=== PATIENT | female | born 1985 | race Caucasian/White ===

== ENCOUNTER 2024-01-25 14:04 | Outpatient (CLI) | payer BC, SELFPAY ==
--- NOTE | ~2024-01-25 | MM_ITS ---
EXAMINATION: MM screening christo BI w herman HISTORY: Screening TECHNIQUE: Craniocaudal and mediolateral oblique 3-D tomosynthesis images were obtained and synthetic 2-D images were generated. CAD analysis was submitted and interpreted. COMPARISON: 08/16/2007 BREAST PARENCHYMAL COMPOSITION: Not dense: There are scattered areas of fibroglandular density. FINDINGS: There is no evidence of suspicious mass, calcification, or architectural distortion to sugg est malignancy in either breast. There has been no suspicious interval change. IMPRESSION: 1. No mammographic evidence of malignancy. 2. Recommend routine screening mammography in one year. BI-RADS Category 1: Negative Reviewed, dictated and finalized at location B.
== END 2024-01-25 14:05 ==
PROVIDERS: PCP Nurse Practitioner Adult Health; Visit Provider Nurse Practitioner
DX: Z12.31 Encounter for screening mammogram for malignant neoplasm of breast (principal)
CPT/HCPCS: 77063; 77067

== ENCOUNTER 2024-09-07 17:02 | Emergency (ER) | payer BC, SELFPAY ==
[2024-09-07 17:07] VITALS: BP 131/87; PULSE 83; RESP 16; TEMP 36.4; O2SAT 100
--- NOTE | 2024-09-07 17:15 | ED_ITS ---
HPI - Wound/Laceration General Chief Complaint: Wound/Laceration Stated Complaint: Cut Finger Time Seen by Provider: 09/07/24 17:10 Source: patient Mode of arrival: ambulatory Limitations: no limitations History of Present Illness HPI narrative: Margaret is a 39-year-old female patient presenting to the clinic today with complaints of a cut to the left lateral pinky. She reports she slipped and fell and her her pinky ran across the wall and she cut the 5th finger last night. Tetanus is unknown. Bleeding is controlled. Related Data Allergies Allergy/AdvReac Type Severity Reaction Status Date / Time acetaminophen [From Vicodin] AdvReac Intermediate Nausea and Verified 09/07/24 17:06 Vomiting hydrocodone [From Vicodin] AdvReac Intermediate Nausea and Verified 09/07/24 17:06 Vomiting Review of Systems Review of Systems: Pertinent positives per HPI. Patient denies any fever, chills, rash, headache, visual changes, dizziness, cough, runny nose, sore throat, shortness of breath, chest pain, palpitations, nausea, vomiting, diarrhea, constipation, abdominal pain, or any urinary issues. [facility] Past Medical History Medical History History of lateral epicondylitis of left elbow Lateral epicondylitis of elbow Left elbow pain Obesity Right elbow pain Family History Family History Grandparent Diabetes mellitus Social History Social History Social History: caffeine use Smoking status: Never smoker Alcohol intake: current Alcohol use details: occasional Substance use: never Lack of Transportation: No Lack of Food: Never True Current Housing: I Have Housing Concerned About Future Housing: No Difficulty Paying Gas/Electric Bills: No Difficulty Paying for Meds: No Currently Unemployed: No Education: Master's Degree or Higher Difficulty w/ Childcare or Family Care: No Living arrangements: with family Occupation/Education: occupation 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 There is no relevant family history pertinent to the patient complaint. Exam Narrative: General: Well-developed, well nourished, in no apparent distress Head: Normocephalic, atraumatic. Cardio: Regular rate and rhythm, s1 and s2 normal, no murmur appreciated. Resp: Clear to auscultation bilaterally, no rhonchi, rales, wheezing or rubs. Integumentary: [place], warm, and dry, 1.5 x 1 cm skin avulsion to the lateral aspect of the mid/distal 5th finger Course Course Emergency Course: Portions of this record may have been created with voice recognition software. Level of Care: Express Care Visit Vital Signs Vital signs: Vital signs reviewed MDM - Wound/Laceration MDM Narrative Medical decision making narrative: At the time of visit patient is resting comfortably on the exam table. Patient appears to be nontoxic. Medications: Tdap was given in the clinic today. Plan: I suspect patient has a skin avulsion to the right 5th finger. Supportive measures were discussed with the patient and they voiced understanding discharge instructions and agrees to treatment plan. Return precautions reviewed Differential Diagnosis Differential diagnosis: Likely laceration, abscess, abrasion and avulsion of skin Discharge Plan Discharge Clinical Impression: Avulsion of skin of finger Patient Disposition: Home, Self-Care Condition: Stable Instructions: Antibiotic Form, Skin Avulsion (ED) Additional Instructions: Tdap was given in the clinic today. Leave bandage on for 24 hours then may remove and apply band aide covering as needed. Keep wound clean and dry May apply triple antibiotic ointment to the wound twice daily times 48 hours. Watch for signs and symptoms of infection- redness, streaking, swelling, purulent discharge, or increase in pain. Follow up with your PCP as needed Prescriptions: No Action Zepbound 7.5 mg/0.5 mL pen injector 7.5 mg subcut WEEKLY Qty: 2 0RF Follow-up/Referrals: Vandana Zaldivar APRN [Primary Care Provider] - Time of Disposition: 17:14 Quality NIHSS Nursing Documentation ED NIHSS nursing documentation: reviewed/agree
[2024-09-07] MEDS: TETANUS,DIPHTHERIA,AC PERTUSSIS ADULT (0.5 ML) BOOSTRIX IM (17:18)
== END 2024-09-07 17:21 | disposition home or self-care (01) ==
PROVIDERS: Emergency Provider Nurse Practitioner Family; PCP Nurse Practitioner Adult Health
DX: S61.206A Unspecified open wound of right little finger without damage to nail, initial encounter (principal); W01.198A Fall on same level from slipping, tripping and stumbling with subsequent striking against other object, initial encounter; Z23 Encounter for immunization; E66.9 Obesity, unspecified; Z68.31 Body mass index [BMI] 31.0-31.9, adult
CPT/HCPCS: 90471; 90715; 99212; G0463

== ENCOUNTER 2024-12-31 07:09 | Outpatient (CLI) | payer BC, SELFPAY ==
--- OUTSIDE RECORDS SUMMARY | 2024-12-31 07:13 | XMS_ITS | Clinical Summary ---
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 Gender Identity Not on file Sexual Orientation Not on file Plan of Treatment Health Maintenance Due Date Last Done Comments Hepatitis C Virus (HCV) Screening 1983 TdaP Immunization 1983 Hepatitis B Immunization (1 of 3 - 19+ 3-dose series) 2002 Pap Smear 2004 Cervical Cancer Screening (CCS) 2013 HPV/Cotest 2013 Discussion re Starting/Frequency of Mammograms 2023 Influenza Immunization (#1) 06/09/202406/09, 07/25/2019, 11/21/2018, Additional history exists SARS-COV-2 Immunization (2023- season) 2024 Respiratory Syncytial Virus (RSV) Immunization (Adult) (1 - 1-dose 75+ series) 2058 Meningococcal Immunization (ACWY) Aged Out No longer eligible based on patient's age to complete this topic Pneumococcal Immunization Combined Aged Out No longer eligible based on patient's age to complete this topic Rotavirus Immunization Aged Out No lo nger eligible based on patient's age to complete this topic
--- OUTSIDE RECORDS SUMMARY | 2024-12-31 07:13 | XMS_ITS | Clinical Summary ---
Author Organization [facility] Address [address] [place] [address] Phone Care Team Providers Care Store Clerk Name Role Phone Nnamdi, Porsha Vasques MD Primary Care Provider Allergies Active Allergy Reactions Criticality Noted Date Comments Hydrocodone-Acetaminophen Unknown 07/20/2009 Medications VITS W-CA,FE,FA,<1MG, ( VITAMIN PO)Indications:L ump or mass in breast Take by mouth. Active FOLIC ACID ORAL Take 400 mg by mouth daily. Active docusate sodium (COLACE) 100 mg Oral capsule Take 2 Caps by mouth daily. Active Active Problems Patient Care Coordination No te Formatting of this note migh t be different from the original. Primary Care: Porsha Yoder MD Referring Provider: No referring provider defined for this encounter. Other: Problem Noted Date Diagnosed Date Lump or mass in breast 07/20/2009 Comments Yes Family History Medical History Relation Name Comments Diabetes Father Other Maternal Grandfather blood c lots Spont Ab Maternal Grandmother Healthy Mother Diabetes Paternal Grandfather Breast Cancer Paternal Grandmother age 82 Healthy Sister Relation Name Status Comments Father Maternal Grandfather Maternal Grandmother Mother Paternal Grandfather Paternal Grandmother Sister Social History Tobacco Use Types Packs/Day Years Used Date Smoking Tobacco: Never Alcohol Use Standard Drinks/Week Comments Yes 0 (1 standard drink = 0.6 oz pur e alcohol) rarely Comments Yes Sex and Gender Information Value Date Recorded Sex Assigned at Not on file 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 Gender Identity Not on file Sexual Orientation Not on file Occupation Industry Job Start Date Job End Date Not on file Not on file Not on file Not on file Last Filed Vital Signs Vital Sign Reading Time Taken Comments Blood Pressure 101/69 01/26/2010 10:21 AM CDT Pulse - - Temperature - - Respiratory Rate - - Oxygen Saturation - - Inhaled Oxygen Concentration - - Weight 84.8 kg (187 lb) 01/26/2010 10:21 AM CDT Height 172.7 cm (5' 8 ) 01/26/2010 10:21 AM CDT Body Mass Index 28.43 01/26/2010 10:21 AM CDT Plan of Treatment Health Maintenance Due Date Last Done Comments DTAP/TDAP/TD VACCINES (1 - Tdap) 2002 HEPATITIS B VACCINES (1 of 3 - 19+ 3-dose series) 2002 PAP SMEAR 2004 CERVICAL CANCER SCREENING 2013 HPV/Cotest 2013 PAP SMEAR 2013 BREAST CANCER SCREENING 2023 08/16/20 07, 08/16/2007 INFLUENZA VACCINE (#1) 2024 RSV VACCINE (60+ or ) (1 - 1-dose 75+ series) 2058 HPV VACCINES Aged Out No longer eligi ble based on patient's age to complete this topic PNEUMOCOCCAL VACCINE 0-49 YEARS Aged Out No longer eligible b ased on patient's age to complete this topic Procedures Procedure Name Priority Date/Time Associated Diagnosis Comments MAMMO DIAGNOSTIC BILATERAL W OR WO CAD Routine 08/16/2007 from Last 3 Months or Most Recently Relevant to Health Maintenance Results * MAMMO DIGITAL DIAG BILAT (08/16/2007) Anatomical Region Laterality Modality Breast Bilateral Other us Leslie Goodrich MD MAMMO ORDERABLES Final Result from Last 3 Months or Most Recently Relevant to Health Maintenance Insurance BCBS BLUE ACCESS/TRUE BLUE PPO Care Teams Store Clerk Relationship Specialty Start Date End Date Porsha Coto MD PCP - General 07/20/09
[2024-12-31 19:56] LABS: Alanine Aminotransferase 17 U/L (6-35); Albumin Level 4.5 g/dL (3.5-5.1); Alkaline Phosphatase 57 U/L (38-126); Anion Gap 9 mmol/L (4-12); Aspartate Amino Transferase 40 U/L (14-36); Bilirubin,Total 0.8 mg/dL (0.2-1.3); Blood Urea Nitrogen 14 mg/dL (7-17); Calcium 9.5 mg/dL (8.4-10.2); Carbon Dioxide 24 mmol/L (22-30); Chloride 106 mmol/L (98-107); Cholesterol 114 mg/dL (0-200); Estimated Glomerular Filt Rate > 60; Glucose 88 mg/dL (65-110); HDL Direct 37 mg/dL; Potassium 4.2 mmol/L (3.4-5.0); Sodium 139 mmol/L (137-145); Triglycerides 118 mg/dL (<150)
[2024-12-31 20:20] LABS: LDL Cholesterol Direct < 30 mg/dL
[2024-12-31 21:06] LABS: Hemoglobin A1C 4.8 % (<5.7)
== END 2024-12-31 07:10 | disposition home or self-care (01) ==
PROVIDERS: PCP Nurse Practitioner Adult Health; Visit Provider Nurse Practitioner Adult Health
DX: Z13.9 Encounter for screening, unspecified (principal); R73.9 Hyperglycemia, unspecified
CPT/HCPCS: 36415; 80053; 80061; 83036

== ENCOUNTER 2025-01-16 14:07 | Emergency (ER) | payer BC, SELFPAY ==
[2025-01-16] VITALS (8 sets, daily range): BP systolic 86–103; BP diastolic 59–76; PULSE 71–93; RESP 12–19; TEMP 36.4–36.5; O2SAT 96–100
--- NOTE | ~2025-01-16 | CT_ITS ---
EXAMINATION: CT abdomen pelvis w con DATE: 01/16/2025 16:27 INDICATION: Right upper quadrant abdominal pain TECHNIQUE: Computed tomography (CT) of the abdomen and pelvis was performed with 100 mL Omnipaque-350 intravenous contrast. Automated exposure control and iterative reconstruction technique were employe d. The dose-length product was 428.42 mGy-cm. COMPARISON: None FINDINGS: Lung bases are clear. Heart size is normal. No pericardial or pleural effusion. Mild intrahepatic chris iary ductal dilation. Liver is otherwise unremarkable. The common bile duct remained normal in calibe r measuring up to 4 mm in diameter. No evident distal obstructing stone or mass identified. Gallbladd er, spleen, pancreas, bilateral adrenal glands and kidneys are normal. Bowels including the appendix are normal. Bladder, anteverted uterus and bilateral adnexa are unremarkable. No free intraperitoneal gas or fluid. No pathologically enlarged abdominal or pelvic lymphadenopathy. Mild lumbar spondylosi s. IMPRESSION: 1. Mild intrahepatic biliary ductal dilation with normal caliber common bile duct and no evident obst ructing stone or mass. Correlate with liver function tests and if clinically indicated could consider MRCP for further evaluation. Reviewed, dictated and finalized at location B. IMPRESSION: 1. Mild intrahepatic biliary ductal dilation with normal caliber common bile du ct and no evident obstructing stone or mass. Correlate with liver function test s and if clinically indicated could consider MRCP for further evaluation.
--- NOTE | ~2025-01-16 | US_ITS ---
Limited ABDOMINAL ULTRASOUND (Doppler ultrasound interrogation techniques used as needed for this exa m.) Ordering provider: Rashid Prather MD History: . RUQ pain . Comparison: None. FINDINGS: PANCREAS: Normal echotexture and size. PORTAL VEIN: Hepatopedal flow demonstrated. LIVER: Normal size and echotexture. Liver measures 16.5 cm. No focal hepatic lesions or perihepatic f luid collections are identified. BILIARY DUCTS: No intra or extrahepatic biliary dilation. Common bile duct measures 2.1 mm in diamete r which is normal for patient's age. GALLBLADDER: Multiple stones. No sludge, gallbladder wall thickening or pericholecystic fluid. Wall t hickness is 1.5 mm. Negative sonographic Mason's sign. IVC: Patent. FREE FLUID: None visualized within the upper abdomen. IMPRESSION: Cholelithiasis. Otherwise, normal limited abdominal ultrasound. Reviewed, dictated and finalized at location A.
--- OUTSIDE RECORDS SUMMARY | 2025-01-16 14:42 | XMS_ITS | Clinical Summary ---
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
--- OUTSIDE RECORDS SUMMARY | 2025-01-16 14:42 | XMS_ITS | Clinical Summary ---
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
--- OUTSIDE RECORDS SUMMARY | 2025-01-16 14:42 | XMS_ITS | Continuity of Care Document ---
Author Organization [facility] Address [address] [place] [address] Phone Care Team Providers Care Director Of Pharmacy Name Role Phone MD POPE GILBERT Unavailable Unavailable Advance Directives Directive Yes / No Effective Date File Name No Information Encounters Encounter Description Practice Location Reason(s) For Visit Diagnoses Date Provider Providers Copied on Encounter [facility], [address] [facility] [address], [place], [place], [id number], [place] tel:[phone] [facility] No Information MD ANKIT POPE. [address] [place] [address], [id number], [place]. tel:[phone] Referring Provider: LUANN Alonzo, [address], [place], [address]. tel:[phone] Family History Family Member Type Diagnosis Age At Onset No Information Payers Payer name Insurance type Covered libertarian ID Authoriza richard(s) [facility] PPO [id number] BL [id number] Social History Type Description Quantity Date Captured Comments Sex Female Smoking Status No Information Chief Complaint And Reason For Visit No Information History Of Present Illness Encounter Date Complaint History Of Prese nt Illness No Information Instructions Date Instruction Additional Infor mation No Information Assessments Type Assessment Date No Information
[2025-01-16 15:01] LABS: BEDSIDEPREGUCG Negative (Negative)
[2025-01-16 15:09] LABS: Basophils Absolute Auto 0.1 K/mm3 (0.0-0.1); Basophils Percent Auto 0.5 % (0.2-1.2); Eosinophils Absolute Auto 0.1 K/mm3 (0-0.3); Eosinophils Percent Auto 0.8 % (0-4.4); Hemoglobin 13.5 g/dL (12.0-15.0); Immature Granulocyte Percent A 0.8 % (0-0.5); Lymphocytes Absolute Auto 2.66 K/mm3 (0.9-3.2); Lymphocytes Percent Auto 20.4 % (18.3-44.2); Mean Corpuscular HGB Conc 32.9 g/dl (32-36); Mean Corpuscular Hemoglobin 26.9 pg (26-34); Mean Corpuscular Volume 81.8 fl (80-100); Mean Platelet Volume 9.6 fl (7.4-10.4); Monocytes Absolute Auto 0.7 K/mm3 (0.1-0.6); Monocytes Percent Auto 5.2 % (2.6-8.5); Neutrophils Absolute Auto 9.4 K/mm3 (1.3-6.7); Neutrophils Percent Auto 72.3 % (45.5-73.1); Platelet Count Result 293 k/mm3 (150-375); Red Blood Count 5.01 M/mm3 (4.2-5.4); Red Cell Distribution Width 14.3 % (11.5-14.5)
[2025-01-16 15:19] LABS: Alanine Aminotransferase 27 U/L (6-35); Albumin Level 4.7 g/dL (3.5-5.1); Alkaline Phosphatase 65 U/L (38-126); Anion Gap 11 mmol/L (4-12); Aspartate Amino Transferase 31 U/L (14-36); Bilirubin,Total 0.7 mg/dL (0.2-1.3); Blood Urea Nitrogen 15 mg/dL (7-17); Calcium 9.3 mg/dL (8.4-10.2); Carbon Dioxide 26 mmol/L (22-30); Chloride 103 mmol/L (98-107); Estimated CRCL calculation 79 ml/min; Estimated Glomerular Filt Rate > 60; Glucose 95 mg/dL (65-110); Lipase 100 U/L (23-300); Potassium 3.7 mmol/L (3.4-5.0); Sodium 140 mmol/L (137-145)
[2025-01-16 15:23] LABS: Add Urine Microscopic? YES; Appearance Urine Cloudy (Clear); Bacteria Urine 3+ /hpf; Bilirubin Urine Negative (Negative); Blood Urine Negative (Negative); Color Urine Dark Yellow (Yellow); Glucose Urine UA Negative (Negative); Ketones Urine Trace mg/dL (Negative); Leukocyte Esterase Ur 1+ LEU/UL (Negative); Need Manual Microscopic Reviewed; Nitrate Urine Negative (Negative); Non Pathogenic Casts 0-2; Protein Urine Negative (Negative); RBC Urine 0-2 /hpf (0-2); Specific Grav Ur 1.026 (1.001-1.035); Squamous Epithelial Cell Urine Moderate /hpf (Few); WBC Urine 0-5 /hpf (0-3)
[2025-01-16] MEDS: ONDANSETRON INJ 4 MG/2 ML VIAL IV PUSH (16:41)
[2025-01-16] MEDS: FAMOTIDINE 20 MG/2 ML VIAL IV PUSH (16:43)
[2025-01-16] MEDS: HYDROmorphone HCL INJ (*CRX) 1 MG/ML SYR 0.5 MG IV PUSH ×2 (16:43→18:08)
[2025-01-16] MEDS: SODIUM CHLORIDE 0.9% IV 500 ML 999 ML IV CONT (16:44)
[2025-01-16] MEDS: SODIUM CHLORIDE 0.9% IV 1,000 ML 999 ML IV CONT ×2 (16:45)
--- OUTSIDE RECORDS SUMMARY | 2025-01-16 17:04 | XMS_ITS | Continuity of Care Document ---
Author Organization [facility] Address [address] [place] [address] Phone Care Team Providers Care Steel Rule Die Maker Apprentice Name Role Phone MD POPE GILBERT Unavailable Unavailable Advance Directives Directive Yes / No Effective Date File Name No Information Encounters Encounter Description Practice Location Reason(s) For Visit Diagnoses Date Provider Providers Copied on Encounter [facility], [address] [facility], [place], [place], [id number], [place] tel:[phone] [facility] No Information MD ANKIT POPE. [address] [place] [address], [id number], [place]. tel:[phone] Referring Provider: LUANN Alonzo, [address], [place], [address]. tel:[phone] Family History Family Member Type Diagnosis Age At Onset No Information Payers Payer name Insurance type Covered democrat ID Authoriza richard(s) [facility] PPO [id number] BL [id number] Social History Type Description Quantity Date Captured Comments Sex Female Smoking Status No Information Chief Complaint And Reason For Visit No Information History Of Present Illness Encounter Date Complaint History Of Prese nt Illness No Information Instructions Date Instruction Additional Infor mation No Information Assessments Type Assessment Date No Information
--- OUTSIDE RECORDS SUMMARY | 2025-01-16 17:04 | XMS_ITS | Clinical Summary ---
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
--- OUTSIDE RECORDS SUMMARY | 2025-01-16 17:04 | XMS_ITS | Clinical Summary ---
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
--- NOTE | 2025-01-16 18:44 | ED.GENADULT ---
HPI - General Adult General Chief complaint: Abdominal Pain Stated complaint: Abd pain, N/V x 3hrs Time Seen by Provider: 01/16/25 15:03 History of Present Illness HPI narrative: This is a pleasant 39-year-old female presenting with right upper quadrant pain. Pain started at 10:00 a.m. this morning. Pain is an achy/sharp pain in the right upper quadrant that radiates to her back. It began after she ate food. She has had this occur multiple times over the last several months but it typically resolves after she vomits. She did have an episode of vomiting earlier today. She denies fevers chills chest pain difficulty breathing urinary symptoms or diarrhea. She has no history of gallbladder disease she is aware of. Related Data Allergies Allergy/AdvReac Type Severity Reaction Status Date / Time acetaminophen (From Vicodin) AdvReac Intermediate Nausea and Verified 01/16/25 14:09 Vomiting hydrocodone (From Vicodin) AdvReac Intermediate Nausea and Verified 01/16/25 14:09 Vomiting PMFSH Past Medical History Medical History Sprain of left elbow Injury of left elbow Lateral epicondylitis of elbow History of lateral epicondylitis of left elbow Right elbow pain Left elbow pain Obesity Family History Family History Grandparent Diabetes mellitus Social History Social History Social History: caffeine use Smoking status: Never smoker Alcohol intake: current Alcohol use details: occasional Substance use: never Lack of Transportation: No Lack of Food: Never True Current Housing: I Have Housing Concerned About Future Housing: No Difficulty Paying Gas/Electric Bills: No Difficulty Paying for Meds: No Currently Unemployed: No Education: Master's Degree or Higher Difficulty w/ Childcare or Family Care: No Living arrangements: with family Occupation/Education: occupation 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 Head: atraumatic. EYES: EOMI, NOSE: Atraumatic NECK: Trachea midline RESPIRATORY: No increased rate of breathing CTAB CARDIOVASCULAR: RRR, ABDOMINAL: Tenderness palpation the right upper quadrant without guarding rebound, no CVA tenderness MUSCULOSKELETAl: No obvious deformities NEURO: Alert. Moving 4/4 extremities SKIN:: Warm, dry. Normal color PSYCHIATRIC: Normal affect Course Vital Signs Vital signs: Vital Signs Temperature 97.5 F L 01/16/25 14:13 Pulse Rate 75 01/16/25 14:13 Respiratory Rate 16 01/16/25 14:13 Blood Pressure 92/59 L 01/16/25 14:13 Pulse Oximetry 100 01/16/25 14:13 Oxygen Delivery Room Air 01/16/25 14:13 Temperature 97.5 F L 01/16/25 14:13 Pulse Rate 91 01/16/25 16:47 Respiratory Rate 18 01/16/25 16:47 Blood Pressure 100/70 01/16/25 16:47 Pulse Oximetry 99 01/16/25 16:47 Oxygen Delivery Room Air 01/16/25 14:13 Medical Decision Making MDM Narrative Medical decision making narrative: -Course: 39-year-old female presenting with right upper quadrant pain. Right upper quadrant ultrasound shoulder cholelithiasis without evidence of cholecystitis or hepatic ductal dilation. Liver enzymes within normal limits. White blood cell count mildly elevated but no fevers other signs of systemic illness. Patient's symptoms were improved with fluids and pain medication. She is now tolerating p.o. is comfortable going home. She has been given strict return precautions for signs of cholecystitis or gallbladder disease. She has been given surgery follow-up. -DDX includes but is not limited to: Gallbladder pathology, gastritis, pancreatitis, medication side effect Vital Signs Vital Signs: Vital Signs Temperature 97.5 F L 01/16/25 14:13 Pulse Rate 75 01/16/25 14:13 Respiratory Rate 16 01/16/25 14:13 Blood Pressure 92/59 L 01/16/25 14:13 Pulse Oximetry 100 01/16/25 14:13 Oxygen Delivery Room Air 01/16/25 14:13 Temperature 97.5 F L 01/16/25 14:13 Pulse Rate 91 01/16/25 16:47 Respiratory Rate 18 01/16/25 16:47 Blood Pressure 100/70 01/16/25 16:47 Pulse Oximetry 99 01/16/25 16:47 Oxygen Delivery Room Air 01/16/25 14:13 Lab Data 01/16/25 15:01 01/16/25 15:01 Labs: Lab Results 01/16/25 01/16/25 Range/Units 14:59 15:01 WBC 13.0 H (4.5-10.0) K/mm3 RBC 5.01 (4.2-5.4) M/mm3 Hgb 13.5 (12.0-15.0) g/dL Hct 41.0 (37.0-47.0) % MCV 81.8 (80-100) fl MCH 26.9 (26-34) pg MCHC 32.9 (32-36) g/dl RDW 14.3 (11.5-14.5) % Plt Count 293 (150-375) k/mm3 MPV 9.6 (7.4-10.4) fl Immature Gran % (Auto) 0.8 H (0-0.5) % Neut % (Auto) 72.3 (45.5-73.1) % Lymph % (Auto) 20.4 (18.3-44.2) % [place] % (Auto) 5.2 (2.6-8.5) % Eos % (Auto) 0.8 (0-4.4) % Baso % (Auto) 0.5 (0.2-1.2) % Lymph # (Auto) 2.66 (0.9-3.2) K/mm3 [place] # (Auto) 0.7 H (0.1-0.6) K/mm3 Eos # (Auto) 0.1 (0-0.3) K/mm3 Baso # (Auto) 0.1 (0.0-0.1) K/mm3 Abs Immat Gran (auto) 0.10 H (0.00-0.031) K/mm3 Absolute Neuts (auto) 9.4 H (1.3-6.7) K/mm3 Absolute Nucleated RBC 0.000 (0.0-0.012) K/mm3 Nucleated RBC % 0.0 (0.0-0.2) % Sodium 140 (137-145) mmol/L Potassium 3.7 (3.4-5.0) mmol/L Chloride 103 (98-107) mmol/L Carbon Dioxide 26 (22-30) mmol/L Anion Gap 11 (4-12) mmol/L BUN 15 (7-17) mg/dL Creatinine 0.82 (0.7-1.0) mg/dL Estim Creat Clear Calc 79 ml/min Estimated GFR > 60 (59 - ) Glucose 95 (65-110) mg/dL Calcium 9.3 (8.4-10.2) mg/dL Total Bilirubin 0.7 (0.2-1.3) mg/dL AST 31 (14-36) U/L ALT 27 (6-35) U/L Alkaline Phosphatase 65 (38-126) U/L Total Protein 8.0 (6.3-8.2) g/dL Albumin 4.7 (3.5-5.1) g/dL Lipase 100 (23-300) U/L Urine Color Dark yellow (Yellow) Urine Appearance Cloudy H (Clear) Urine pH 6.0 (5.0-9.0) Ur Specific Castor 1.026 (1.001-1.035) Urine Protein Negative (Negative) mg/dL Urine Glucose (UA) Negative (Negative) mg/dL Urine Ketones Trace H (Negative) mg/dL Ur Blood (Man) Negative (Negative) Urine Nitrate Negative (Negative) Urine Bilirubin Negative (Negative) Urine Urobilinogen 1.0 (<2.0) mg/dL Add Ur Microanalysis Reviewed Leukocyte Esterase Rfl 1+ H (Negative) ANDREW/UL Urine RBC 0-2 (0-2) /hpf Urine WBC 0-5 (0-3) /hpf Ur Squamous Epith Cells Moderate (Few) /hpf Urine Bacteria 3+ H /hpf Urine Casts 0-2 POC Urine HCG, Qual Negative (Negative) Discharge Plan Discharge Clinical Impression: Cholelithiasis Patient Disposition: Home Condition: Stable Instructions: Antibiotic Form, Biliary Colic (ED) Additional Instructions: You were seen in the emergency department for biliary colic. Please use Motrin for pain. Use Zofran for nausea. Please eat a low-fat diet. Please contact the surgeon listed below for follow-up. If you develop fevers, severe/constant pain, or feel your condition is getting worse please return to ED for re-evaluation. Patient Language: Solomon Islander Prescriptions: New ibuprofen 800 mg tablet 800 mg PO TID PRN (Reason: pain) 7 Days Qty: 21 0RF ondansetron 4 mg tablet,disintegrating 4 mg PO Q8H PRN (Reason: nausea and vomiting) Qty: 30 0RF No Action methylprednisolone [Medrol (Ramy)] 4 mg tablets,dose pack See Rx Instructions PO PER PKG DIR Qty: 21 0RF Rx Instructions: PO PER PKG DIR Zepbound 10 mg/0.5 mL pen injector 10 mg subcut WEEKLY Qty: 2 0RF Follow-up/Referrals: Rick Graham MD [Physician] - 1 Week (Biliary colic) Vandana Zaldivar APRN [Primary Care Provider] -
== END 2025-01-16 19:19 | disposition home or self-care (01) ==
PROVIDERS: Emergency Provider Emergency Medicine; PCP Nurse Practitioner Adult Health
DX: K80.20 Calculus of gallbladder without cholecystitis without obstruction (principal); E66.9 Obesity, unspecified; Z68.27 Body mass index [BMI] 27.0-27.9, adult; Z79.85 Long-term (current) use of injectable non-insulin antidiabetic drugs
CPT/HCPCS: 36415; 74177; 76705; 80053; 81001; 81025; 83690; 85025; 96361; 96374; 96375; 96376; 99284; J1171; J2405; J7030; Q9967

== ENCOUNTER 2025-02-19 09:56 | Outpatient (CLI) | payer BC, SELFPAY ==
--- OUTSIDE RECORDS SUMMARY | 2025-02-19 10:17 | XMS_ITS | Clinical Summary ---
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
--- OUTSIDE RECORDS SUMMARY | 2025-02-19 10:17 | XMS_ITS | Clinical Summary ---
Author Organization [facility] Address Pending sale to [facility] [place] [address] Care Team Providers Care Pyrometer Temperature Regulator Name Role Phone Vandana Zaldivar NP Primary Care Provider [phone] Allergies Active Allergy Reactions Criticality Noted Date Comments Hydrocodone-Acetaminophen Nausea Only 5 Medications ondansetron (ZOFRAN-ODT) 4 MG disintegrating tablet Take 1 tablet (4 mg total) by mouth every 8 (eight) hours as needed. 20 tablet 01/24/20 25 Active oxyCODONE-acetamin ophen (PERCOCET) 5-325 MG tabletIndications: Acute Pain < 7 Day Supply Take 1 tablet by mouth every 4 (four) hours as needed for Pain. Indicatio ns: Acute Pain < 7 Day Supply 15 tablet 01/24/20 25 Active ondansetron (ZOFRAN-ODT) 4 MG disintegrating tablet Take 1 tablet (4 mg total) by mouth every 8 (eight) hours as needed. 20 tablet 01/24/20 25 025 Discontinued oxyCODONE-acetamin ophen (PERCOCET) 2.5-325 MG tabletIndications: Acute Pain < 7 Day Supply Take 1 tablet by mouth every 4 (four) hours as needed for Pain. Indicatio ns: Acute Pain < 7 Day Supply 15 tablet 01/24/20 25 025 Discontinued( erapy completed) Encounters Date Type Department Care Team Description 01/23/2025 1:40 PM CDT - 01/23/2025 4:30 PM CDT Emergency [facility] [place] [address] Ashleigh Garcia NP Abdominal Pain; Back Pain Discharge Disposition: Home or Self Care (Routine Discharge) 01/23/2025 Travel from Last 3 Months Social History Tobacco Use Types Packs/Day Years Used Date Smoking Tobacco: Never Smokeless Tobacco: Never Tobacco Cessation:Counseling Given: Not Answered Alcohol Use Standard Drinks/Week Comments Not Currently 0 (1 standard drink = 0.6 oz pur e alcohol) Comments Unknown Sex and Gender Information Value Date Recorded Sex Assigned at Female 01/23/2025 1:02 PM CDT Legal Sex Female 12:58 PM CDT Gender Identity Not on file Sexual Orientation Not on file Last Filed Vital Signs Vital Sign Reading Time Taken Comments Blood Pressure 123/80 01/23/2025 1:03 PM CDT Pulse 95 01/23/2025 1:03 PM CDT Temperature 36.8 C (98.3 F) 01/23/2025 1:03 PM CDT Respiratory Rate 16 01/23/2025 1:03 PM CDT Oxygen Saturation 100% 01/23/2025 1:03 PM CDT Inhaled Oxygen Concentration - - Weight 81.1 kg (178 lb 12.7 oz) 01/23/2025 1:03 PM CDT Height 172.7 cm (5' 8 ) 01/23/2025 1:03 PM CDT Body Mass Index 27.19 01/23/2025 1:03 PM CDT Plan of Treatment Health Maintenance Due Date Last Done Comments Cervical Cancer Screening Pa p Smear (Age 30 to 64) Every 3 Years 1983 Annual Physical 1986 Hepatitis C 2001 Hepatitis B Vaccines (1 of 3 - 19+ 3-dose series) 2002 Cervical Cancer Screening Pa p with HPV Testing (Age 30 to 64) Every 5 Years 2013 Cervical Cancer Screening with HPV 2013 Mammogram Screening 2023 COVID-19 Vaccine (2 - 2023-2 5 season) 2024 02/27/2021 DTaP, Tdap and Td Vaccines ( 2 - Td or Tdap) 09/07/2034 09/07/2024 HPV Vaccines Aged Out No longer eligi ble based on patient's age to complete this topic Meningococcal B Vaccine Aged Out No l onger eligible based on patient's age to complete this topic Meningococcal Vaccine Aged Out No zoila suzy eligible based on patient's age to complete this topic Pneumococcal Vaccine: Pediat rics (0 to 5 Years) and At-Risk Patients (6 to 49 Years) Aged Out No longer eligi ble based on patient's age to complete this topic RSV Immunizations Under 20 Months Aged Out No longer eligible based on patient's age to complete this topic Procedures Procedure Name Priority Date/Time Associated Diagnosis Comments CT ABD+PEL W CON STAT 01/23/2025 2:19 PM CDT LIPASE STAT 01/23/2025 1:52 PM CDT COMPREHENSIVE METABOLIC PANEL STAT 01/23/2025 1:52 PM CDT CBC W/DIFF AUTOMATED STAT 01/23/2025 1:52 PM CDT HC URINALYSIS AUTO W/O MICRO STAT 01/23/2025 1:51 PM CDT LACTIC ACID W REFLEX (SEPSIS) STAT 01/23/2025 1:51 PM CDT from Last 3 Months Results * CT ABD+PEL W IV CON ONLY (01/23/2025 2:19 PM CDT) Anatomical Region Laterality Modality Abdomen Computed Tomogra phy 01/23/2025 2:28 PM CDT Impressions 01/23/2025 2:38 PM CDT IMPRESSION: 1. No acute abnormality identified. 2. Trace free pelvic fluid. 3. Other chronic or nonurgent findings as described above. Referred By: Interpreted By: Sandor Cordova MD, 01/23/2025 2:28 PM Narrative 01/23/2025 2:38 PM CDT [address] [address] EXAMINATION: CT ABD+PEL W CON CLINICAL HISTORY: Right upper quadrant pain COMPARISON: None DATE/TIME: 01/23/2025 2:16 PM TECHNIQUE: Multiplanar CT images of the abdomen and pelvis were obtained. IV contrast: uneventful intravenous administration of 100 mL Isovue 370. Oral contrast: None. A dose lowering technique was used for this procedure, which may include, but is not limited to, dose reduction technique, automated exposure control, the use of iterative reconstruction, and ALARA (As Low As Reasonably Achievable) / Image Gently techniques. FINDINGS: Liver, gallbladder, bile ducts, pancreas and spleen are within normal limits. Adrenal glands and kidneys are within normal limits. Bladder is decompressed and not well evaluated. Small left ovarian cyst measuring 2.1 cm. Uterus and right ovary are within normal limits. Abdominal aorta is normal caliber. Trace free pelvic fluid, nonspecific but potentially physiologic. No free air. No bowel obstruction. No bowel wall thickening. The appendix is not identified, but no evidence for acute appendicitis is seen. Stomach and duodenum are unremarkable. No acute osseous abnormality. Minimal lumbar degenerative change. Procedure Note Sandor Cordova MD - 01/23/2025 [facility] [address] [place], [place] [address] EXAMINATION: CT ABD+PEL W CON CLINICAL HISTORY: Right upper quadrant pain COMPARISON: None DATE/TIME: 01/23/2025 2:16 PM TECHNIQUE: Multiplanar CT images of the abdomen and pelvis were obtained.IV contrast: uneventful intravenous administration of 100 mL Isovue 370.Oral contrast: None. A dose lowering technique was used for this procedure, which may include,but is not limited to, dose reduction technique, automated exposurecontrol, the use of iterative reconstruction, and ALARA (As Low AsReasonably Achievable) / Image Gently techniques. FINDINGS: Liver, gallbladder, bile ducts, pancreas and spleen are withinnormal limits. Adrenal glands and kidneys are within normal limits. Bladder is decompressed and not well evaluated. Small left ovarian cystmeasuring 2.1 cm. Uterus and right ovary are within normal limits.Abdominal aorta is normal caliber. Trace free pelvic fluid, nonspecific but potentially physiologic. No freeair. No bowel obstruction. No bowel wall thickening. The appendix isnot identified, but no evidence for acute appendicitis is seen. Stomachand duodenum are unremarkable. No acute osseous abnormality. Minimallumbar degenerative change. IMPRESSION: 1. No acute abnormality identified. 2. Trace free pelvic fluid. 3. Other chronic or nonurgent findings as described above. Referred By: Interpreted By: Sandor Cordova MD, 01/23/2025 2:28 PM Ashleigh Garcia PROCESS CONTROL ENGINEER CT Final Result * (ABNORMAL) COMPREHENSIVE METABOLIC PANEL (01/23/2025 1:52 PM CDT) Pathologist [facility] GLUCOSE 83 70 - 99 MG/DL 01/23/2025 2:35 PM CDT [facility] BUN 13 7 - 18 MG/DL 01/23/2025 2:35 PM CDT [facility] CREATININE S/P/B 0.79 0.55 - 1.02 MG/DL 01/23/2025 2:35 PM CDT [facility] SODIUM S/P/B 138 136 - 145 MMOL/L 01/23/2025 2:35 PM CDT [facility] POTASSIUM S/P/B 3.6 3.5 - 5.1 MMOL/L 01/23/2025 2:35 PM CDT [facility] CHLORIDE S/P/B 107 97 - 115 MMOL/L 01/23/2025 2:35 PM CDT [facility] CO2 25.6 21 - 32 MMOL/L 01/23/2025 2:35 PM CDT [facility] CALCIUM S/P/B 9.1 8.5 - 10.1 MG/DL 01/23/2025 2:35 PM CDT [facility] BILIRUBIN TOTAL S/P/B 0.6 0.2 - 1.2 MG/DL 01/23/2025 2:35 PM CDT [facility] Comment: THIS ASSAY IS NOT RECOMMENDED FOR PATIENTS UNDERGOING TREATMENT WITH ELTROMBOPAG DUE TO THE POTENTIAL FOR FALSELY ELEVATED RESULTS. TOTAL PROTEIN S/P/B 7.5 6.4 - 8.2 G/DL 01/23/2025 2:35 PM CDT [facility] ALBUMIN S/P/B 3.9 3.4 - 5.0 G/DL 01/23/2025 2:35 PM CDT [facility] AST 24 15 - 37 U/L 01/23/2025 2:35 PM CDT [facility] ALT 146(H) 14 - 55 U/L 01/23/2025 2:35 PM CDT [facility] ALKALINE PHOSPHATASE S/P/B 87 50 - 136 U/L 01/23/2025 2:35 PM CDT [facility] ANION GAP 5.4 2 - 10 MMOL/L 01/23/2025 2:35 PM CDT [facility] BUN CREATININE RATIO 16.5 6 - 26 01/23/2025 2:35 PM CDT [facility] A/G RATIO 1.1 1.0 - 2.0 RATIO 01/23/2025 2:35 PM CDT [facility] GFR ESTIMATE >90 >90 ML/MIN/1.7 3 M2 01/23/2025 2:35 PM CDT [facility] Comment: NOTE: eGFR is not calculated for patients <18 years of age or gender unknown. This is an estimated GFR calculation using the new CKD EPI creatinine equation without race and so does not require a correction factor for race. This estimated GFR should not be used for calculating drug doses. 01/23/2025 1:52 PM CDT Ashleigh Garcia NP LABORATORY Final Result [facility] [address] [place] [address], [place] [phone] * (ABNORMAL) CBC W/DIFF AUTOMATED (01/23/2025 1:52 PM CDT) [facility] WBC 9.40 4.5 - 11.0 x10'3/uL 01/23/2025 2:15 PM CDT [facility] RBC 5.16 4.20 - 5.40 x10'6/uL 01/23/2025 2:15 PM CDT [facility] HGB 13.8 12.0 - 16.0 G/DL 01/23/2025 2:15 PM CDT [facility] HCT 42.2 38.0 - 48.0 % 01/23/2025 2:15 PM CDT [facility] MCV 81.8 81.0 - 99.0 FL 01/23/2025 2:15 PM CDT [facility] MCH 26.7(L) 27.0 - 31.0 PG 01/23/2025 2:15 PM CDT [facility] MCHC 32.7 32.0 - 36.0 G/DL 01/23/2025 2:15 PM CDT [facility] RDW 14.7(H) 11.5 - 14.5 % 01/23/2025 2:15 PM CDT [facility] PLT 301 130 - 400 x10'3/uL 01/23/2025 2:15 PM CDT [facility] MPV 10.1 9.3 - 12.2 FL 01/23/2025 2:15 PM CDT [facility] DIFFERENTIAL TYPE AUTOMATED DIFFERENTIAL 01/23/2025 2:15 PM CDT [facility] NEUTROPHILS % 56.5 % 01/23/2025 2:15 PM CDT [facility] LYMPHOCYTES % 33.6 % 01/23/2025 2:15 PM CDT [facility] MONOCYTES % 7.4 % 01/23/2025 2:15 PM CDT [facility] EOSINOPHILS 1.6 % 01/23/2025 2:15 PM CDT [facility] BASOPHILS 0.4 % 01/23/2025 2:15 PM CDT [facility] IMMATURE GRANS % 0.5 % 01/24/20 2:15 PM CDT [facility] ABS. NEUTROPHILS 5.30 1.80 - 7.70 x10'3/uL 01/23/2025 2:15 PM CDT [facility] ABS. LYMPHOCYTES 3.16 1.00 - 4.80 x10'3/uL 01/23/2025 2:15 PM CDT [facility] ABS. MONOCYTES 0.70 0.24 - 0.86 x10'3/uL 01/23/2025 2:15 PM CDT [facility] ABS. EOSINOPHILS 0.15 0.04 - 0.36 x10'3/uL 01/23/2025 2:15 PM CDT [facility] ABS. BASOPHILS 0.04 0.01 - 0.08 x10'3/uL 01/23/2025 2:15 PM CDT [facility] ABS. IMMATURE GRANULOCYTES 0.05 0.00 - 0.49 x10'3/uL 01/23/2025 2:15 PM CDT [facility] 01/23/2025 1:52 PM CDT us Ashleigh Garcia NP LABORATORY Final Result [facility] [address] [place] [address], [place] [phone] * LIPASE (01/23/2025 1:52 PM CDT) LIPASE 37 13 - 75 UNITS/L 01/23/2025 2:35 PM CDT [facility] 01/23/2025 1:52 PM CDT Ashleigh Garcia PROCESS CONTROL ENGINEER LABORATORY Final Result [facility] [address] [place] [address], [place] [phone] * LACTIC ACID W REFLEX (SEPSIS) (01/23/2025 1:51 PM CDT) LACTIC ACID VENOUS 0.9 0.4 - 2.0 MMOL/L 01/23/2025 2:45 PM CDT [facility] 01/23/2025 1:51 PM CDT Ashleigh Garcia PROCESS CONTROL ENGINEER LABORATORY Final Result [facility] [address] [place] [address], [place] [phone] * (ABNORMAL) URINALYSIS (01/23/2025 1:51 PM CDT) SPECIMEN TYPE URINE CLEAN CATCH 01/23/2025 1:53 PM CDT [facility] COLOR (U) YELLOW 01/23/2025 2:42 PM CDT [facility] TRANSPARENCY CLEAR 01/23/2025 2:42 PM CDT [facility] SPECIFIC GRAVITY (U) 1.027 1.001 - 1.030 01/23/2025 2:42 PM CDT [facility] U PH 6.5 5.0 - 9.0 01/23/2025 2:42 PM CDT [facility] LEUKOCYTES (U) 25(A) NEGATIVE 01/23/2025 2:42 PM CDT [facility] NITRITES NEGATIVE NEGATIVE 01/23/2025 2:42 PM CDT [facility] PROTEIN RANDOM (U) 10 <30 MG/DL 01/23/2025 2:42 PM CDT [facility] GLUCOSE (U) NORMAL NORMAL MG/DL 01/23/2025 2:42 PM CDT [facility] KETONES MG/DL (U) 10(A) NEGATIVE MG/DL 01/23/2025 2:42 PM CDT [facility] UROBILINOGEN NORMAL NORMAL MG/DL 01/23/2025 2:42 PM CDT [facility] BILIRUBIN (U) NEGATIVE NEGATIVE MG/DL 01/23/2025 2:42 PM CDT [facility] BLOOD (U) NEGATIVE NEGATIVE 01/23/2025 2:42 PM CDT [facility] MUCUS RARE /LPF 01/23/2025 2:42 PM CDT [facility] HYALINE CASTS RARE /LPF 01/23/2025 2:42 PM CDT [facility] WBC/HPF 3 <6 /HPF 01/23/2025 2:42 PM CDT [facility] RBC/HPF 7(H) <6 /HPF 01/23/2025 2:42 PM CDT [facility] SQUAMOUS EPITHELIALS FEW /HPF 01/23/2025 2:42 PM T [facility] URINE SPECIMEN OBTAINED BY CLEAN CATCH PROCEDURE / Unknown 01/23/2025 1:51 PM CDT us Ashleigh Garcia PROCESS CONTROL ENGINEER URINE ORDERABLES Final Result [facility] [address] [place] [address], [place] [phone] from Last 3 [id number] [facility] Care Teams Pyrometer Temperature Regulator Relationship Specialty Start Date End Date Vandana Zaldivar NP [address] [place] [address] [place] [address] PCP - General NURSE PRACTITIONER 01/23/25
--- OUTSIDE RECORDS SUMMARY | 2025-02-19 10:17 | XMS_ITS | Clinical Summary ---
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
[2025-02-19 10:19] LABS: Basophils Absolute Auto 0.1 K/mm3 (0.0-0.1); Basophils Percent Auto 0.8 % (0.2-1.2); Eosinophils Absolute Auto 0.1 K/mm3 (0-0.3); Eosinophils Percent Auto 1.6 % (0-4.4); Hematocrit 39.8 % (37.0-47.0); Hemoglobin 12.9 g/dL (12.0-15.0); Immature Granulocyte Absolute 0.02 K/mm3 (0.00-0.031); Immature Granulocyte Percent A 0.3 % (0-0.5); Lymphocytes Absolute Auto 2.81 K/mm3 (0.9-3.2); Lymphocytes Percent Auto 44.5 % (18.3-44.2); Mean Corpuscular HGB Conc 32.4 g/dl (32-36); Mean Corpuscular Volume 83.4 fl (80-100); Mean Platelet Volume 9.8 fl (7.4-10.4); Monocytes Absolute Auto 0.5 K/mm3 (0.1-0.6); Monocytes Percent Auto 8.4 % (2.6-8.5); Neutrophils Absolute Auto 2.8 K/mm3 (1.3-6.7); Neutrophils Percent Auto 44.4 % (45.5-73.1); Platelet Count Result 247 k/mm3 (150-375); Red Blood Count 4.77 M/mm3 (4.2-5.4); Red Cell Distribution Width 14.6 % (11.5-14.5); White Blood Count 6.3 K/mm3 (4.5-10.0)
[2025-02-19 10:30] LABS: Alanine Aminotransferase 22 U/L (6-35); Albumin Level 4.5 g/dL (3.5-5.1); Alkaline Phosphatase 56 U/L (38-126); Amylase 76 U/L (30-110); Aspartate Amino Transferase 22 U/L (14-36); Bilirubin,Total 0.3 mg/dL (0.2-1.3); Lipase 73 U/L (23-300)
== END 2025-02-19 09:57 | disposition home or self-care (01) ==
LOC: ANHLAB 09:57
PROVIDERS: PCP Nurse Practitioner Adult Health; Visit Provider Surgery
DX: K80.10 Calculus of gallbladder with chronic cholecystitis without obstruction (principal); Z01.818 Encounter for other preprocedural examination
CPT/HCPCS: 36415; 80076; 82150; 83690; 85025

== ENCOUNTER 2025-02-27 02:42 | Day surgery (SDC) | payer BC, SELFPAY ==
[2025-02-18 13:39] VITALS: BMI 26.8
--- NOTE | 2025-02-18 14:07 | SUR.PREOP ---
Report to the Outpatient Waiting Room, entrance under the green pavilion located off [facility], at time _1200 on date _02/27/25 . Planned Procedure Time: __1400 .? Time changes happen often and if your time is changed the preop area will call you the afternoon before. - You and your visitor will be asked to self-screen and do not enter if you have any COVID symptoms. Please call surgeon if you need to reschedule. - A mask is optional within the hospital at this time. Patients may have clear liquids (water, carbonated beverages, clear teas, apple juice) until 3 hours prior to surgery with a maximum of 20 ounces. - No food from midnight until time of surgery and no smoking, or chewing tobacco (or any form of nicotine). No chewing gum, candy or mints. Take only the following medications with a SIP of water on the morning of surgery: _NONE DO NOT STOP ANY OF YOUR OTHER PRESCRIPTION MEDICATIONS PRIOR TO SURGERY EXCEPT THE FOLLOWING Hold all vitamins and supplements for 3 days per anesthesiologist. Medications to discontinue per physician NONE Date to take last dose Please no make-up, nail danish, hairspray, perfume, deodorant, or body powder the day of surgery.? No jewelry (including any body piercings) or valuables the day of surgery, leave them at home.? Please take a shower or bath the night before, or the morning of, surgery with an antibacterial soap.? Wear comfortable, loose fitting clothing.? - Jewelry must be removed prior to entering the operating room.? Rings and piercings that are not removed may be cut off. - The hospital will not accept responsibility for valuables.? - Please leave all valuables, including medications, at home the day of surgery. If you are going home after surgery, a licensed box truck driver must drive you home.? - NO public transportation without another adult if you receive anesthesia. - We recommend that an adult stay with you for 24 hours following discharge. - We also recommend that you do not drive, make important decision, drink alcoholic beverages, or take any drugs that were not prescribed by your health care provider for at least 24 hours after your discharge time. Follow any additional instructions given to you from your surgeon. Telephone instructions given to __TRICIA and asked if any additional questions and then verbalized understanding. Patient advised to call surgeon office or pre surgery nurse liaison [phone] if any additional questions.
[2025-02-27] VITALS (10 sets, daily range): BP systolic 96–139; BP diastolic 64–81; PULSE 61–92; RESP 10–18; TEMP 36.5–36.7; O2SAT 98–100
--- OUTSIDE RECORDS SUMMARY | 2025-02-27 02:46 | XMS_ITS | Clinical Summary ---
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
--- OUTSIDE RECORDS SUMMARY | 2025-02-27 02:46 | XMS_ITS | Continuity of Care Document ---
Author Organization [facility] Address [address] [place] [address] Phone Care Team Providers Care Assembler Gold Frame Name Role Phone MD POPE GILBERT Unavailable Unavailable Advance Directives Directive Yes / No Effective Date File Name No Information Encounters Encounter Description Practice Location Reason(s) For Visit Diagnoses Date Provider Providers Copied on Encounter [facility], [address] [facility], [place], [place], [id number], [place] tel:[phone] [facility] No Information MD ANKIT POPE. [address] [place] [address], [id number], [place]. tel:[phone] Referring Provider: LUANN Alonzo, [address], [place], [address]. tel:[phone] Family History Family Member Type Diagnosis Age At Onset No Information Payers Payer name Insurance type Covered democrat ID Authoriza richard(s) [facility] PPO [id number] Social History Type Description Quantity Date Captured Comments Sex Female Smoking Status No Information Chief Complaint And Reason For Visit No Information History Of Present Illness Encounter Date Complaint History Of Prese nt Illness No Information Instructions Date Instruction Additional Infor mation No Information Assessments Type Assessment Date No Information
--- OUTSIDE RECORDS SUMMARY | 2025-02-27 02:46 | XMS_ITS | Clinical Summary ---
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
--- NOTE | 2025-02-27 11:59 | WPDHPUPDATE1 ---
History and Physical Update Update Date/Time: 02/27/25 11:59 History and Physical has been reviewed, including an updated exam of the patient. There are NO changes in the patient's condition. Risks, benefits, and alternatives have been discussed and questions answered. Patient agrees to proceed with procedure.
[2025-02-27] MEDS: ACETAMINOPHEN 500 MG TABLET 1000 MG PO (12:35)
[2025-02-27] MEDS: KETOROLAC 15 MG/ML VIAL (*BKC) IV PUSH (12:40)
--- NOTE | 2025-02-27 13:22 | WPDANESEPPF ---
Anes - Initial Pre Proc Eval Procedure: Operation Date: 02/27/25 14:00 Proposed Procedures p Laparoscopic Cholecystectomy - Rick Graham MD Date/Time: 02/27/25 13:22 Surgeon: Rick Graham MD Pre Op Diagnosis: Chr Cholecystitis with Stones Patient Data Age: 39 Gender: F Height: 1.73 m Weight: 80 kg Last Vital Signs Temp 36.7 C 02/27/25 12:17 Pulse 71 02/27/25 12:17 Resp 18 02/27/25 12:17 BP 108/76 02/27/25 12:17 Pulse Ox 100 02/27/25 12:17 O2 Del Method Room Air 02/27/25 12:17 Allergies Allergy/AdvReac Type Severity Reaction Status Date / Time hydrocodone (From Vicodin) AdvReac Intermediate Nausea and Verified 02/27/25 12:46 Vomiting Home Medications ?Medication ?Instructions ?Recorded ?Confirmed ?Type cetirizine 10 mg capsule (All Day 10 mg PO DAILY PRN allergy symptoms 02/18/25 02/18/25 History Allergy (cetirizine)) Patient hx anesthesia problems: none Family hx anesthesia problems: none Results Review: All pre-operative results and documents have been reviewed as part of the pre-operative evaluation. [facility] Past Medical History Medical History Sprain of left elbow Injury of left elbow Lateral epicondylitis of elbow History of lateral epicondylitis of left elbow Right elbow pain Left elbow pain Obesity Family History Family History Grandparent Diabetes mellitus Social History Social History Social History: caffeine use Smoking status: Never smoker Alcohol intake: current Alcohol use details: occasional Substance use: never Do You Feel Safe in your Home?: Yes Lack of Transportation: No Lack of Food: Never True Current Housing: I Have Housing Concerned About Future Housing: No Difficulty Paying Gas/Electric Bills: No Difficulty Paying for Meds: No Currently Unemployed: No Education: Master's Degree or Higher Difficulty w/ Childcare or Family Care: No Living arrangements: with family Occupation/Education: occupation 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- [employer] Gender identity (if verbalized by the patient): Female Spiritual care concerns: No Agree to blood products: Yes Anes - Eval Final PreProcedure Day of Procedure 02/27/25 13:22 Patient weight: overweight Heart: regular rate and rhythm Lungs: clear to auscultation Airway: Mallampati scale class II Neurological: alert and oriented Last oral intake: >/= 8 hours ASA classification: II Emergent: no Anesthetic plan: proceed Anesthesia type and monitoring: general ETT and standard monitoring Results Review: All pre-operative results and documents have been reviewed as part of the pre-operative evaluation. Informed Consent: The patient's anesthetic plan and its attendant risks and benefits were discussed with the patient/family/POA. Questions were solicited and answers provided to the satisfaction of the patient/family/POA.
[2025-02-27] MEDS: SCOPOLAMINE 1 MG PATCH 1 PATCH TRANSDERM (13:28)
[2025-02-27] MEDS: ceFAZolin 2 GM/D5W 50 ML 2 GM/50 ML BAG IVPB (13:30)
[2025-02-27] MEDS: BUPIVACAINE/EPINEPHRINE 0.5% 50 ML VIAL 20 ML INFILTRATE (13:48)
[2025-02-27] MEDS: LACTATED RINGERS 1,000 ML 30 ML IV CONT (14:37)
--- NOTE | 2025-02-27 14:40 | P.OP_ITS ---
Procedure Note - Detailed Date of Procedure 02/27/25 Pre-op Diagnosis Chr Cholecystitis with Stones Post-op Diagnosis Same Procedure Performed Laparoscopic cholecystectomy Surgeon Rick Graham MD Template Fitter Abbie GAITANA Anesthesia General and Local Indications Patient has had episodes of severe right upper quadrant abdominal pain associated with nausea and sometimes diarrhea. She had an ultrasound which showed gallstones. She is taken to surgery now for laparoscopic cholecystectomy Findings Chronic inflammation, no biliary ductal dilatation, no definite stone seen, normal liver Description of Procedure Patient was taken to surgery and induced into general anesthesia. The abdomen is prepped and draped. Trocars were placed in the usual fashion using apartum optical trocar and a 5 mm camera. Adhesions were taken down from the gallbladder. The gallbladder was then decompressed with a laparoscopic aspirator. The cholecystotomy was closed with a Vicryl endoloop. The gallbladder was then retracted anterosuperiorly. Traction was placed on the infundibulum. Dissection was then carried out in the cholecystohepatic triangle. The peritoneum overlying the gallbladder and adjacent structures was thickened from chronic inflammation. Dissection was carried out on the lower margin of the gallbladder. It was freed somewhat from the adjacent liver. Diss ection was then carried out on the cystic duct and cystic artery. Dissection was slow because there was a lot of chronic inflammation and fibrotic change. Eventually the cystic artery and cystic duct were dissected out very clearly. The gallbladder was dissected off the liver over at least its lower 3rd. Critical view was achieved. I then securely clipped the cystic artery. I dissected a bit more on the cystic duct getting fatty and fibrotic tissue off the duct itself. I then securely clipped and divided the cystic duct. Traction was placed on the gallbladder. We slowly took down the attachments of the gallbladder to the liver. Minimal bleeding occurred. Cautery was used for hemostasis. Once the gallbladder was completely freed, it was placed in an Endo-Catch bag. It was able to be extricated from the abdomen through the epigastric trocar site. We replaced the epigastric trocar and reviewed the right upper quadrant and gallbladder fossa. Some additional cautery was used. We irrigated and suctioned the right upper quadrant as well. All looked good with no evidence of bleeding or bile leakage. We then evacuated CO2 and removed the trocar sleeves. Skin wounds were closed with subcuticular 4-0 Monocryl skin suture. The wounds were dressed with Exofin surgical adhesive. The patient was then awakened and taken to recovery in good condition. Sponge and needle counts were correct x2. Estimated Blood Loss -5 Drains No Packing No Pathology Yes (Gallbladder) Complications None Condition Stable Disposition PACU [facility] Billing Surgery - Charge Forward: Surgery Billing (Laparoscopic cholecystectomy)
[2025-02-27] MEDS: ONDANSETRON INJ 4 MG/2 ML VIAL IV PUSH (15:02)
[2025-02-27] MEDS: diphenhydrAMINE HCl INJ 50 MG/ML VIAL 25 MG IV PUSH (16:33)
[2025-02-27] MEDS: oxyCODONE HCL (*CRX) 5 MG TAB IR PO (16:53)
== END 2025-02-27 17:33 | disposition home or self-care (01) ==
PROVIDERS: PCP Nurse Practitioner Adult Health; Visit Provider Surgery
PROC: 0FT44ZZ Resection of Gallbladder, Percutaneous Endoscopic Approach (ICD-10-PCS; CPT 47562; principal; 2025-02-27 14:00)
DX: K80.10 Calculus of gallbladder with chronic cholecystitis without obstruction (principal)
CPT/HCPCS: 47562; 88304; A9270; J0690; J1100; J1200; J1885; J2250; J2270; J2405; J2704; J7120

== ENCOUNTER 2025-06-04 07:46 | Outpatient (CLI) | payer BC, SELFPAY ==
--- OUTSIDE RECORDS SUMMARY | 2025-06-04 07:51 | XMS_ITS | Clinical Summary ---
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
--- OUTSIDE RECORDS SUMMARY | 2025-06-04 07:51 | XMS_ITS | Clinical Summary ---
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 Gender Identity Not on file Sexual Orientation [...] 10:21 AM CDT Height 172.7 cm (5' 8) 01/26/2010 10:21 AM CDT Body Mass Index 28.43 01/26/2010 10:21 AM CDT Plan of Treatment Health Maintenance Due Date Last Done Comments DTAP/TDAP/TD VACCINES (1 - Tdap) 2002 HEPATITIS B VACCINES (1 of 3 - 19+ 3-dose series) 2002 HPV/Cotest (21-29) 2004 HPV VACCINES (1 - 3-dose SCDM series) 2010 CERVICAL CANCER SCREENING 2013 HPV/Cotest (30-65) 2013 PAP SMEAR 2013 BREAST CANCER SCREENING 2023 08/16/2007, 08/16 INFLUENZA VACCINE (#1) 2025 RSV VACCINE (60+ or ) (1 - 1-dose 75+ series) 2058 Procedures Procedure Name Priority Date/Time Associated Diagnosis [...] BCBS BLUE ACCESS/TRUE BLUE PPO Care Teams Program Engineer Relationship Specialty Start Date End Date Porsha Coto MD PCP - General 07/20/09
[2025-06-04 19:20] LABS: Alanine Aminotransferase 15 U/L (6-35); Albumin Level 4.6 g/dL (3.5-5.1); Alkaline Phosphatase 68 U/L (38-126); Anion Gap 9 mmol/L (4-12); Aspartate Amino Transferase 45 U/L (14-36); Bilirubin,Total 0.5 mg/dL (0.2-1.3); Blood Urea Nitrogen 20 mg/dL (7-17); Calcium 9.5 mg/dL (8.4-10.2); Carbon Dioxide 24 mmol/L (22-30); Chloride 105 mmol/L (98-107); Cholesterol 124 mg/dL (0-200); Estimated Glomerular Filt Rate > 60; Glucose 91 mg/dL (65-110); HDL Direct 55 mg/dL; Potassium 4.5 mmol/L (3.4-5.0); Sodium 138 mmol/L (137-145); Total Protein 7.7 g/dL (6.3-8.2); Triglycerides 75 mg/dL (<150)
[2025-06-04 19:22] LABS: Hematocrit 44.3 % (37.0-47.0); Hemoglobin 14.0 g/dL (12.0-15.0); Mean Corpuscular HGB Conc 31.6 g/dl (32-36); Mean Corpuscular Hemoglobin 26.6 pg (26-34); Mean Corpuscular Volume 84.1 fl (80-100); Platelet Count Result 276 k/mm3 (150-375); Red Blood Count 5.27 M/mm3 (4.2-5.4); White Blood Count 6.6 K/mm3 (4.5-10.0)
[2025-06-04 19:23] LABS: Hemoglobin A1C 5.1 % (<5.7)
[2025-06-04 19:35] LABS: Free T4 Free Thyroxine 1.17 ng/dL (0.78-2.19)
[2025-06-04 19:56] LABS: Thyroid Stimulating Hormone 2.530 uIU/mL (0.465-4.680)
[2025-06-08 14:08] LABS: Estrogens, Total 186 pg/mL (.)
== END 2025-06-04 07:47 | disposition home or self-care (01) ==
PROVIDERS: PCP Nurse Practitioner Adult Health; Visit Provider Nurse Practitioner Adult Health
DX: R73.9 Hyperglycemia, unspecified (principal); Z00.00 Encounter for general adult medical examination without abnormal findings; E66.9 Obesity, unspecified
CPT/HCPCS: 36415; 80053; 80061; 82672; 83036; 84144; 84439; 84443; 85027

== ENCOUNTER 2025-09-24 14:50 | Outpatient (CLI) | payer BC, SELFPAY ==
--- NOTE | ~2025-09-24 | MM_ITS ---
EXAMINATION: MM screening christo BI w herman HISTORY: Screening TECHNIQUE: Craniocaudal and mediolateral oblique 3-D tomosynthesis images were obtained and synthetic 2-D images were generated. CAD analysis was submitted and interpreted. COMPARISON: Comparison to multiple prior studies sequentially, with oldest reviewed study dated , 08/16/2007 BREAST PARENCHYMAL COMPOSITION: Not Dense: There are scattered areas of fibroglandular density. FINDINGS: There is no evidence of suspicious mass, calcification, or architectural distortion to suggest malignancy in either breast. IMPRESSION: 1. No mammographic evidence of malignancy. 2. Recommend routine screening mammography in one year. BI-RADS Category 1: Negative Reviewed, dictated and finalized at location [facility]. [facility]
--- OUTSIDE RECORDS SUMMARY | 2025-09-24 17:41 | XMS_ITS | Clinical Summary ---
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
--- OUTSIDE RECORDS SUMMARY | 2025-09-24 17:41 | XMS_ITS | Clinical Summary ---
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
--- OUTSIDE RECORDS SUMMARY | 2025-09-24 17:41 | XMS_ITS | Clinical Summary ---
Author Organization [facility] Address [facility] [place] [address] Care Team Providers Care Duplicate Maker Name Role Phone Vandana Zaldivar NP Primary Care Provider [phone] Allergies Active Allergy Reactions Criticality Noted Date Comments Hydrocodone-Acetaminophen Nausea Only 5 Medications ondansetron (ZOFRAN-ODT) 4 MG disintegrating tablet Take 1 tablet (4 mg total) by mouth every 8 (eight) hours as needed. 20 tablet 5 Active oxyCODONE-acetamino phen (PERCOCET) 5-325 MG tabletIndications:A cute Pain < 7 Day Supply Take 1 tablet by mouth every 4 (four) hours as needed for Pain. Indications : Acute Pain < 7 Day Supply 15 tablet 5 Active Social History Tobacco Use Types Packs/Day Years [...] 1:03 PM CDT Height 172.7 cm (5' 8) 01/23/2025 1:03 PM CDT Body Mass Index 27.19 01/23/2025 1:03 PM CDT Plan of Treatment Health Maintenance Due Date Last Done Comments Cervical Cancer Screening Pap Smear (Age 30 to 64) Every 3 Years 1983 Annual Physical 1986 Hepatitis C 2001 Hepatitis B Vaccines (1 of 3 - 19+ 3-dose series) 2002 HPV Vaccines (1 - 3-dose SCDM series) 2010 Cervical Cancer Screening Pap with HPV Testing (Age 30 to 64) Every 5 Years 2013 Cervical Cancer Screening with HPV 2013 Mammogram Screening 2023 COVID-19 Vaccine ( season) 2025 02/27/2021 Influenza Adult (#1) 2025 09/11/2024, 06/11/2021, 06/18/2020, Additional history exists DTaP, Tdap and Td Vaccines (2 - Td or Tdap) 09/07/2034 09/07/2024 Hepatitis A Vaccines Aged Out No long er eligible based on patient's age to complete this topic Meningococcal B Vaccine Aged Out No l onger eligible based on patient's age to complete this topic Meningococcal Vaccine Aged Out No zoila suzy eligible based on patient's age to complete this topic Pneumococcal Vaccine: Pediatrics (0 to 5 Years) and At-Risk Patients (6 to 49 Years) Aged Out No longer eligible based on patient's age to complete this topic RSV Immunizations Under 20 Months Aged Out No longer eligible based on patient's age to complete this topic Insurance [facility] Care Teams Duplicate Maker Relationship Specialty Start Date End Date Vandana Zaldivar NP [address] [place] [id number] PCP - General NURSE PRACTITIONER 01/23/25
== END 2025-09-24 14:51 | disposition home or self-care (01) ==
LOC: ANHFOHIMG 14:54
PROVIDERS: PCP Nurse Practitioner Adult Health; Visit Provider Nurse Practitioner
DX: Z12.31 Encounter for screening mammogram for malignant neoplasm of breast (principal)
CPT/HCPCS: 77063; 77067